=== PATIENT | male | born 1945 | race Asian ===

== ENCOUNTER 2023-07-17 10:30 | Inpatient (IN) | payer BC ==
[~2023-07-17] VITALS: Ht 165.1 cm; Wt 44.9 kg
[2023-07-17] MEDS ORDERED: MULT-225 PO (11:44)
[2023-07-17] MEDS ORDERED: ATOR10TA PO (11:44)
[2023-07-17] MEDS ORDERED: LOSA25TA27 PO (11:44)
[2023-07-17] MEDS ORDERED: MELA5TAB PO (11:44)
[2023-07-17] MEDS ORDERED: MULT-1196 PO (11:44)
[2023-07-17] MEDS ORDERED: CYAN-51 PO (11:44)
[2023-07-17] MEDS ORDERED: INSU100V39 SQ (11:44)
[2023-07-17] MEDS ORDERED: MIRT-90 PO (11:44)
[2023-07-17] MEDS ORDERED: AMLO5TAB4 PO (11:44)
[2023-07-17] MEDS ORDERED: HYDR-4077 PO (11:44)
[2023-07-17] MEDS ORDERED: ZINC57OI4 TP (11:44)
[2023-07-17] MEDS ORDERED: CALC500T53 PO (11:44)
[2023-07-17] MEDS ORDERED: VITA113O5 TP (11:44)
[2023-07-17] MEDS ORDERED: LABE100T5 PO (11:44)
[2023-07-17] MEDS ORDERED: SEVE800T8 PO (11:44)
[2023-07-17] MEDS ORDERED: POVI3780 TP (11:44)
[2023-07-17 12:52] LABS: INR 1.05 (0.91-1.10); PROTHROMBIN TIME 11.1 SECS (9.2-11.1)
[2023-07-17 13:02] LABS: CALCIUM, SERUM 9.2 mg/dL (8.5-10.1); CARBON DIOXIDE 22 mmol/L (21-32); CHLORIDE 98 mmol/L (98-107); GLUCOSE 164 mg/dL (74-106); POTASSIUM 5.4 mmol/L (3.5-5.1); SODIUM SERUM 139 mmol/L (136-145)
[2023-07-17 13:06] LABS: BASOPHILS # (AUTO) 0.1 K/uL (0.0-0.2); BASOPHILS % (AUTO) 1.3 % (0.0-2.0); EOSINOPHILS # (AUTO) 0.1 K/uL (0.0-0.7); EOSINOPHILS % (AUTO) 0.9 % (0.0-6.0); HEMATOCRIT 34 % (39-51); HEMOGLOBIN 10.4 g/dL (13.5-17.5); LYMPHOCYTES # (AUTO) 0.5 K/uL (0.8-4.8); LYMPHOCYTES % (AUTO) 5.2 % (20.0-44.0); MEAN CORPUSCULAR HEMOGLOBIN 21 PG (26.0-33.0); MEAN CORPUSCULAR HGB CONC 31 g/dl (31.0-36.0); MEAN CORPUSCULAR VOLUME 67 fL (80-96); MONOCYTES # (AUTO) 1.1 K/uL (0.1-1.30); MONOCYTES % (AUTO) 11.5 % (2.0-12.0); NEUTROPHILS # (AUTO) 7.4 K/uL (1.8-8.9); NEUTROPHILS % (AUTO) 81.1 % (43.0-81.0); PLATELET COUNT (AUTO) 187 K/uL (150-450); RED BLOOD CELL COUNT(AUTO) 5.07 MIL/uL (4.5-6.0); RED CELL DISTRIBUTION WIDTH 21.8 % (11.5-15.0); WHITE BLOOD COUNT (AUTO) 9.1 K/uL (4.3-11.0)
[2023-07-17 13:12] LABS: UREA NITROGEN, BLOOD 110 mg/dL (7-18)
[2023-07-17] MEDS ORDERED: MAG HYDROX/AL HYDROX/SIMETH 30 ML UDC PO PRN (15:30)
[2023-07-17] MEDS ORDERED: hydrALAZINE HCL 50 MG TABLET PO PRN (15:30)
[2023-07-17] MEDS ORDERED: DEXTROSE 50%-WATER 50 ML DISP.SYRIN IV PRN (15:30)
[2023-07-17] MEDS ORDERED: Z GUARD REMEDY 4 OZ OINT TP PRN (15:30)
[2023-07-17] MEDS ORDERED: MAGNESIUM HYDROXIDE 30 ML UDC PO PRN (15:30)
[2023-07-17] MEDS ORDERED: ZOLPIDEM TARTRATE 5 MG TABLET PO PRN (15:30)
[2023-07-17] MEDS ORDERED: Medication Not On Formulary EA (Melatonin 5 MG) PO PRN (15:30)
[2023-07-17 17:29] VITALS: BP 145/89; TEMP 99.2; O2SAT 97
[2023-07-17] MEDS: BLOOD SUGAR DIAGNOSTIC 1 EACH STRIP IN SCH (17:42)
[2023-07-17] MEDS: SEVELAMER CARBONATE 800 MG TABLET PO SCH (17:42)
[2023-07-17] MEDS: INSULIN REGULAR, HUMAN 100 UNIT/ML 3 ML VIAL SQ PRN (17:43)
[2023-07-17 20:00] VITALS: BP 159/90; TEMP 97.7; O2SAT 97
[2023-07-17] MEDS: MIRTAZAPINE 15 MG TABLET PO SCH (21:08)
[2023-07-17] MEDS: LOSARTAN POTASSIUM 25 MG TABLET PO SCH (21:08)
[2023-07-18] MEDS ORDERED: IXEK80AU SQ (02:18)
[2023-07-18 07:06] LABS: BASOPHILS % (AUTO) 0.5 % (0.0-2.0); EOSINOPHILS % (AUTO) 0.3 % (0.0-6.0); HEMATOCRIT 31 % (39-51); HEMOGLOBIN 9.8 g/dL (13.5-17.5); LYMPHOCYTES # (AUTO) 0.5 K/uL (0.8-4.8); LYMPHOCYTES % (AUTO) 5.4 % (20.0-44.0); MEAN CORPUSCULAR HEMOGLOBIN 21 PG (26.0-33.0); MEAN CORPUSCULAR HGB CONC 31 g/dl (31.0-36.0); MEAN CORPUSCULAR VOLUME 66 fL (80-96); NEUTROPHILS # (AUTO) 7.2 K/uL (1.8-8.9); NEUTROPHILS % (AUTO) 82.8 % (43.0-81.0); PLATELET COUNT (AUTO) 183 K/uL (150-450); RED BLOOD CELL COUNT(AUTO) 4.72 MIL/uL (4.5-6.0); RED CELL DISTRIBUTION WIDTH 22.1 % (11.5-15.0); WHITE BLOOD COUNT (AUTO) 8.7 K/uL (4.3-11.0)
[2023-07-18 08:00] VITALS: BP 133/84; TEMP 98.2; O2SAT 98
[2023-07-18 08:08] LABS: CALCIUM, SERUM 9.8 mg/dL (8.5-10.1); CARBON DIOXIDE 30 mmol/L (21-32); CHLORIDE 96 mmol/L (98-107); CREATININE 6.5 mg/dL (0.6-1.3); GLUCOSE 138 mg/dL (74-106); MAGNESIUM 2.5 mg/dL (1.8-2.4); PHOSPHORUS 7.1 mg/dL (2.5-4.9); POTASSIUM 4.2 mmol/L (3.5-5.1); SODIUM SERUM 140 mmol/L (136-145); UREA NITROGEN, BLOOD 52 mg/dL (7-18)
[2023-07-18] MEDS: AMLODIPINE BESYLATE 5 MG TABLET PO SCH (08:29)
[2023-07-18] MEDS: CALCIUM CARBONATE (1250) 500 MG TABLET PO SCH (08:29)
[2023-07-18] MEDS: LABETALOL HCL (100MG) 100 MG TABLET PO SCH ×2 (08:30→21:06)
[2023-07-18] MEDS ORDERED: NEPRO VAN 237 ML CAN PO PRN (12:30)
[2023-07-18 16:00] VITALS: BP 108/77; TEMP 98.3; O2SAT 97
[2023-07-18] MEDS: PROSOURCE / PROSTAT (PYXIS) 30 ML UDC PO SCH (16:17)
[2023-07-18 20:00] VITALS: BP 122/80; TEMP 98; TEMP 98.6; O2SAT 97
[2023-07-19 06:48] LABS: BASOPHILS # (AUTO) 0.2 K/uL (0.0-0.2); EOSINOPHILS # (AUTO) 0.5 K/uL (0.0-0.7); EOSINOPHILS % (AUTO) 5.1 % (0.0-6.0); HEMATOCRIT 32 % (39-51); HEMOGLOBIN 9.7 g/dL (13.5-17.5); LYMPHOCYTES % (AUTO) 10.8 % (20.0-44.0); MEAN CORPUSCULAR HEMOGLOBIN 21 PG (26.0-33.0); MEAN CORPUSCULAR HGB CONC 31 g/dl (31.0-36.0); MEAN CORPUSCULAR VOLUME 69 fL (80-96); MONOCYTES # (AUTO) 1.5 K/uL (0.1-1.30); MONOCYTES % (AUTO) 16.2 % (2.0-12.0); NEUTROPHILS # (AUTO) 6.1 K/uL (1.8-8.9); NEUTROPHILS % (AUTO) 65.9 % (43.0-81.0); PLATELET COUNT (AUTO) 187 K/uL (150-450); RED BLOOD CELL COUNT(AUTO) 4.61 MIL/uL (4.5-6.0); RED CELL DISTRIBUTION WIDTH 22.2 % (11.5-15.0); WHITE BLOOD COUNT (AUTO) 9.3 K/uL (4.3-11.0)
[2023-07-19 07:09] LABS: CALCIUM, SERUM 9.6 mg/dL (8.5-10.1); CARBON DIOXIDE 28 mmol/L (21-32); CHLORIDE 94 mmol/L (98-107); CREATININE 5.3 mg/dL (0.6-1.3); GLUCOSE 97 mg/dL (74-106); POTASSIUM 3.5 mmol/L (3.5-5.1); SODIUM SERUM 137 mmol/L (136-145); UREA NITROGEN, BLOOD 34 mg/dL (7-18)
[2023-07-19 07:30] VITALS: BP 132/72; TEMP 96.8; O2SAT 99
[2023-07-19 11:07] LABS: HEPATITIS B SURFACE AB Non Reactive (.)
[2023-07-19] MEDS: IXEKIZUMAB 80 MG/ML SQ ONE (12:31)
[2023-07-19 16:00] VITALS: BP 103/72; TEMP 98.1; O2SAT 98
[2023-07-19 20:00] VITALS: BP 115/80; TEMP 98.8; O2SAT 99
[2023-07-20 06:40] LABS: BASOPHILS # (AUTO) 0.1 K/uL (0.0-0.2); BASOPHILS % (AUTO) 1.4 % (0.0-2.0); EOSINOPHILS # (AUTO) 0.7 K/uL (0.0-0.7); EOSINOPHILS % (AUTO) 8.9 % (0.0-6.0); HEMATOCRIT 33 % (39-51); HEMOGLOBIN 10.2 g/dL (13.5-17.5); LYMPHOCYTES # (AUTO) 0.9 K/uL (0.8-4.8); LYMPHOCYTES % (AUTO) 12.6 % (20.0-44.0); MEAN CORPUSCULAR HEMOGLOBIN 21 PG (26.0-33.0); MEAN CORPUSCULAR HGB CONC 31 g/dl (31.0-36.0); MEAN CORPUSCULAR VOLUME 68 fL (80-96); NEUTROPHILS # (AUTO) 4.6 K/uL (1.8-8.9); NEUTROPHILS % (AUTO) 63.1 % (43.0-81.0); PLATELET COUNT (AUTO) 199 K/uL (150-450); RED BLOOD CELL COUNT(AUTO) 4.79 MIL/uL (4.5-6.0); RED CELL DISTRIBUTION WIDTH 21.8 % (11.5-15.0); WHITE BLOOD COUNT (AUTO) 7.4 K/uL (4.3-11.0)
[2023-07-20 07:10] LABS: CALCIUM, SERUM 9.5 mg/dL (8.5-10.1); CARBON DIOXIDE 32 mmol/L (21-32); CHLORIDE 94 mmol/L (98-107); GLUCOSE 81 mg/dL (74-106); POTASSIUM 4.4 mmol/L (3.5-5.1); SODIUM SERUM 138 mmol/L (136-145); UREA NITROGEN, BLOOD 58 mg/dL (7-18)
[2023-07-20 07:21] LABS: CREATININE 7.5 mg/dL (0.6-1.3)
[2023-07-20 08:00] VITALS: BP 140/82; TEMP 97.9; O2SAT 98
[2023-07-20 16:08] VITALS: BP 126/74; TEMP 98.4; O2SAT 97
[2023-07-20 20:00] VITALS: BP 134/81; TEMP 98.6; O2SAT 99
[2023-07-21 01:35] VITALS: BP 134/81; TEMP 98.6; O2SAT 99
[2023-07-21 07:30] VITALS: BP 133/71; TEMP 97.9; O2SAT 99
[2023-07-21 16:00] VITALS: BP 123/86; TEMP 98.8; O2SAT 96
[2023-07-21 20:00] VITALS: BP 134/89; TEMP 99; O2SAT 99
[2023-07-22 08:00] VITALS: BP 138/90; TEMP 98.1; O2SAT 100
[2023-07-22 16:00] VITALS: BP 138/83; TEMP 99.1; O2SAT 99
[2023-07-22 20:00] VITALS: BP 148/81; TEMP 99.1; O2SAT 96
[2023-07-22] MEDS: ACETAMINOPHEN 325 MG TABLET PO PRN (20:57)
[2023-07-23 07:00] VITALS: BP 161/81; TEMP 97.7; O2SAT 99
[2023-07-23 16:54] VITALS: BP 133/92; TEMP 98.6; O2SAT 99
[2023-07-23 20:00] VITALS: BP 123/78; TEMP 99; O2SAT 97
[2023-07-24 08:30] VITALS: BP 126/68; TEMP 98.3; O2SAT 99
[2023-07-24 16:00] VITALS: BP 143/85; TEMP 98.6; O2SAT 98
[2023-07-24 22:31] VITALS: BP 137/84; TEMP 98.2; O2SAT 98
[2023-07-25 08:00] VITALS: BP 148/84; TEMP 96.5; O2SAT 100
[2023-07-25 16:00] VITALS: BP 150/84; TEMP 98.4; O2SAT 100
[2023-07-25 20:00] VITALS: BP 128/82; TEMP 97.5; O2SAT 100
[2023-07-26 08:00] VITALS: BP 117/85; TEMP 98.2; O2SAT 100
[2023-07-26 16:00] VITALS: BP 114/84; TEMP 98.2; O2SAT 98
[2023-07-26] MEDS: ONDANSETRON HCL/PF 4 MG/2 ML VIAL IVP PRN (18:15)
== END 2023-07-26 18:30 | DRG 640 ==
LOC: ER 10:33 → TELE 15:11 → MED 15:45
PROVIDERS: ADMIT Internal Medicine; ATTEND Nurse Practitioner Acute Care
PROC: 5A1D70Z Performance of Urinary Filtration, Intermittent, Less than 6 Hours Per Day (ICD-10-PCS; principal; 2023-07-17)
DX: E87.70 Fluid overload, unspecified (principal); G93.41 Metabolic encephalopathy; N18.6 End stage renal disease; I12.0 Hypertensive chronic kidney disease with stage 5 chronic kidney disease or end stage renal disease; D68.69 Other thrombophilia; E46 Unspecified protein-calorie malnutrition; Z68.1 Body mass index [BMI] 19.9 or less, adult; D50.9 Iron deficiency anemia, unspecified; E78.5 Hyperlipidemia, unspecified; E87.5 Hyperkalemia; E11.22 Type 2 diabetes mellitus with diabetic chronic kidney disease; Z20.822 Contact with and (suspected) exposure to COVID-19; Z86.73 Personal history of transient ischemic attack (TIA), and cerebral infarction without residual deficits; Z99.2 Dependence on renal dialysis; Z74.09 Other reduced mobility; Z79.4 Long term (current) use of insulin; Z91.158 Patient's noncompliance with renal dialysis for other reason; Z74.01 Bed confinement status; M24.575 Contracture, left foot; M24.574 Contracture, right foot; Z66 Do not resuscitate; Z87.828 Personal history of other (healed) physical injury and trauma
CPT/HCPCS: 36415; 70450-TC; 71045-TC; 80048-TC; 82962-TC; 83735-TC; 84100-TC; 85025-TC; 85610-TC; 86706; 87340; 90935-TC; 92526; 92611-TC; 97110-TC; 97112-TC; 97530-TC; G0378; J1815; J2405; J7030